=== PATIENT | female | born 1955 | race Caucasian/White ===

== ENCOUNTER → 2020-10-06 | Outpatient (CLI) | payer MEDICARE ==
[~2020-10-06] MED LIST: AMLO-187 PO; ATOR40TA59 PO; HYDR12.575 PO; IOHEXOL 180 MG/ML 10 ML VIAL. ONE; LISI-130 PO; MELO15TA23 PO; PRAM0.255 PO; ROPI0.5T4 PO; methylPREDNISolone ACETATE 40 MG/ML VIAL. ONE; methylPREDNISolone ACETATE 80 MG/ML VIAL. ONE
--- NOTE | 2020-10-06 16:21 | PDOC1 ---
INITIAL PAIN CONSULT DATE OF SERVICE: DOS: DATE: 10/06/20 TIME: 16:16 CHIEF COMPLAINT: Chief Complaint: Neck and left upper extremity pain HISTORY OF PRESENT ILLNESS: 64-year-old female presents with history of pain base the neck and left upper extremity for about 6 to 7 months now not result of any specific injury or accident that she is aware of but been getting worse over time patient reports pain base the neck rating to the left scapular region left upper extremity posterior deltoid lateral deltoid into the anterior bicep into the tricep into the hand occasionally with some numbness and tingling mostly in the shoulder itself. Patient reports it is worse with weightbearing repetitive motions left upper extremity reaching overhead with her left arm driving the car exacerbates it turning her head to the left side exacerbates it as well patient reports it wakes her from sleep at least 4-5 times a night does not affect her bowel bladder control or ability to walk but is significant with the neck and upper extremities repetitive motions and lifting items with the left arm. Patient has had physical therapy in August 2020 and also chiropractic treatment and exercises ongoing all of which have helped with but only very minimally patient is taking meloxicam which is not helping as well. Patient rates her disability rating 0- 10 10 being the worst is a 9 with family responsibilities recreation occupation 8 with sexual behavior self-care life support activities and social activity. Patient had MRI scan cervical spine showing cervical spondylitic changes with multilevel disc osteophyte complexes and facet arthropathy spinal stenosis and neuroforaminal narrowing most significant at C4-5 C5-6 and C6-7. PAST MEDICAL HISTORY: PMH: Hypertension, arthritis, cataracts, hyperlipidemia PREVIOUS SURGERIES: Past Surgical Hx: Right total knee replacement, right hip replacement CURRENT MEDICATIONS: Current Meds: Active Scripts Medications Dose Route/Sig Max Daily Dose Days Date Category Meloxicam 15 Mg Tablet 1 Tab PO DAILY 30 10/06/20 Reported Hydrochlorothiazide Capsule (Hydrochlorothiazide) 12.5 Mg Capsule 12.5 Mg PO DAILY 10/06/20 Reported Ropinirole Hcl 0.5 Mg Tablet 0.5 Mg PO DAILY 10/06/20 Reported Mirapex (Pramipexole Di-Hcl) 0.25 Mg Tablet 0.5 Mg PO DAILY 10/06/20 Reported Lisinopril 40 Mg Tablet 1 Tab PO DAILY 10/06/20 Reported Atorvastatin Calcium 40 Mg Tablet 1 Tab PO DAILY 10/06/20 Reported Amlodipine Besylate 10 Mg Tablet 10 Mg PO DAILY 10/06/20 Reported ALLERGIES; Allergies: Coded Allergies: No Known Drug Allergies (Unverified , 10/06/20) FAMILY HISTORY: Family Hx: Essential heart failure, breast cancer, colon cancer SOCIAL HISTORY: Social Hx: Patient is nondrug alcohol does not smoke or use any illegal illicit recreational drugs is lives with her spouse is locally in [facility] and is a local restaurant movie extra REVIEW OF SYSTEMS: ROS: Positive for those items mentioned in history of present illness, all systems are reviewed, otherwise negative ,and are complete full and well-documented on patient's chart. PHYSICAL EXAM: VS: Blood pressure is 143/77 pulse 59 respirations 16 temperature is 98.0 F, height is 5 feet 7 inches weight is 181 pounds PE: PHYSICAL EXAMINATION: GENERAL: The patient is awake, alert, oriented, appropriate, very pleasant in demeanor, patient [place] by her spouse HEENT: Shows normocephalic, atraumatic. Extraocular movements are intact and symmetrical. Oral cavity: Mucous membranes moist and pink. NECK: Shows anterior throat supple without palpable lymphadenopathy noted. Swallow reflex symmetrical. CHEST: Shows normal on inspection. Breath sounds are clear bilaterally, no rales or rhonchi. HEART: Shows S1, S2 clear. No murmurs auscultated. ABDOMEN: Soft, nontender, nondistended, obese. No palpable organomegaly is noted. BACK: Shows spine grossly in the midline. Normal-appearing cervical lordotic curvature. Cervical paraspinous muscles show symmetrical with inspection, on palpation some moderate tenderness diffusely bilaterally diffusely in the middle and lower decrease the paraspinous muscles worse on the left than the right with some moderate tenderness without specific trigger points on the left side. Patient shows good rotation motion cervical spine both laterally as well as full extension full forward flexion with left lateral rotation past 45 degrees so s ignificant tenderness in the base of the neck and some into the lateral aspect of the trapezius and into the lateral deltoid. Right side shows been nontender. There is slightly increased thoracic kyphosis, some minor flattening of the lumbar lordotic curvature. EXTREMITIES: Upper extremities show deep tendon reflexes 2+ in the biceps and triceps tendons. Motor exam is 5 on a scale of 5 with right cosmetic sales advisor strength, biceps and triceps flexion and 4/5 on the left. Peripheral pulses are 2+ radial. No peripheral edema is noted bilaterally. Upper extremities are warm and dry to touch, equal in color and appearance. SKIN: Shows warm and dry, good turgor. No edema. No sores, rashes or bruising throughout. IMPRESSION: Impression: 64-year-old female with 7-month history of pain base the neck and left upper extremity radicular fashion. MRI scan cervical spine as noted Arthritis Hypertension Plan: Options were discussed with the patient "insert medical management physical therapies interventional techniques. Patient like to pursue interventional techniques. We discussed a cervical epidural steroid injections description as well as anatomical models to describe the procedure. Risks were discussed including but not limited to: Bleeding, infection, possibility of epidural hematoma and subsequent neurological compromise, dural puncture, headaches, spinal cord and/or nerve damage, side effects of steroid medication, and poor results regarding pain control. Patient understands and wished to proceed. She will return to the clinic in approximate 2 weeks for follow-up, was counseled as return appointment to fill and side effects to be aware of. Procedure cervical epidural steroid injection at the C6-7 level, using local anesthetic under sterile prep and drape using C-arm fluoroscopic guidance under local anesthesia medications injected ;120 mg Depo-Medrol +5 mL normal saline and 2 mL contrast; condition at discharge is stable patient tolerated procedure well. and had no complications YONAS RAJAN MD Oct 06, 2020 16:21
== END | disposition home or self-care (01) ==
LOC: PNCL 13:45
PROVIDERS: ATTEND Anesthesiology
DX: M54.2 Cervicalgia (principal); M79.602 Pain in left arm; I10 Essential (primary) hypertension; M19.90 Unspecified osteoarthritis, unspecified site; E78.5 Hyperlipidemia, unspecified; Z79.899 Other long term (current) drug therapy; Z98.890 Other specified postprocedural states; Z82.49 Family history of ischemic heart disease and other diseases of the circulatory system; Z80.3 Family history of malignant neoplasm of breast
CPT/HCPCS: G0463; J1030; J1040; Q9965

== ENCOUNTER → 2020-10-20 | Outpatient (CLI) | payer MEDICARE ==
[~2020-10-20] MED LIST changes: -IOHEXOL 180 MG/ML 10 ML VIAL. ONE; -methylPREDNISolone ACETATE 40 MG/ML VIAL. ONE; -methylPREDNISolone ACETATE 80 MG/ML VIAL. ONE
--- NOTE | 2020-10-20 11:46 | PDOC ---
Progress Note - Pain Clinic Date of Service: DOS: DATE: 10/20/20 TIME: 11:43 Diagnosis: Dx: Cervical radiculopathy with cervical spinal stenosis and cervical degenerative disc disease History or Present Illness: HPI: 64-year-old female returns for follow-up status post cervical epidural steroid injection x1. Patient reports near 100% improvement in the neck and left upper extremity pain patient reports her main complaint is right lower extremity pain and low back pain at this time which is much more noticeable now that her neck and shoulders are doing much better patient reports her headaches are now gone she is very pleased with her progress report remains a 1 on scale 10 is least worse than average over the past week and the pain in the back and right leg is now much more noticeable patient reports is aching and sharp cramping constant and severe with standing walking sitting or changing positions patient reports can flareup while she is sleeping and wakes her from sleep 2 to 3 hours. Neck upper extremities and shoulders doing much better however patient is very pleased with her progress thus far. Patient reports no motor loss no bowel or bladder incontinence. Physical Exam: VS: Blood pressure is 140/82 pulse 62 respirations 20 temperature 98.6 F height is 5 feet 7 inches weight is 181 pounds PE: PHYSICAL EXAMINATION: GENERAL: The patient is awake, alert, oriented, appropriate, very pleasant in demeanor, patient accompanied by her HEENT: Shows normocephalic, atraumatic. Extraocular movements are intact and symmetrical. Oral cavity: Mucous membranes moist and pink. Dentition is int act. NECK: Shows anterior throat supple without palpable lymphadenopathy noted. Swallow reflex symmetrical. CHEST: Shows normal on inspection. Breath sounds are clear bilaterally, distant but no rales or rhonchi. HEART: Shows S1, S2 clear. No murmurs auscultated. ABDOMEN: Soft, nontender, nondistended, obese. No palpable organomegaly is noted. BACK: Shows spine grossly in the midline. Normal-appearing cervical lordotic curvature. Cervical paraspinous muscles show symmetrical with inspection, on palpation some mild tenderness more diffusely in the middle and inferior aspect of the cervical paraspinous musculature without specific trigger points. Patient shows good rotation of motion both laterally as well as full extension full forward flexion without significant pain reported. There is slightly increased thoracic kyphosis, some minor flattening of the lumbar lordotic curvature. Lumbar paraspinous muscles show symmetrical on inspection, on palpation shows some moderate tenderness diffusely throughout the upper, middle and lower distribution of the paraspinous muscles bilaterally and also into the lower thoracic paraspinous musculature, firm and tender, but without specific trigger points, without radiation of pain. The patient has good rotational mot ion of the lumbar spine, both laterally as well as extension and flexion without significant difficulty. No tenderness over the spinous processes, sacrum or sacroiliac regions. EXTREMITIES: Lower extremities show deep tendon reflexes 2+ in the patellar and tendo calcaneus tendons. Motor exam is 5 on a scale of 5 with right dorsiflexion, extension, quadriceps and hamstring flexion and 5/5 on the left. Peripheral pulses are 1+ posterior tibial. No peripheral edema is noted bilaterally. Lower extremities are warm and dry to touch, equal in color and appearance. Upper extremity strength and reflexes 2+ in the bicep tricep tendons motor exam strong with 5 out of 5 pastry mixer strength bicep and tricep flexion on the right and 4-5 on the left peripheral pulses are 2+ radial no peripheral edema is noted. Shoulder shrug is strong and intact without loss of strength on resistance bilaterally. SKIN: Shows warm and dry, good turgor. No edema. No sores, rashes or bruising throughout. Procedure: Procedure: Options were discussed with the patient. Patient's old chart reviews her current medication regimen updated current review of systems updated today as well. We will hold on further injections at this time as she is doing much better with the cervical radiculopathy in the left arm. Patient chief complaint of low back and right lower extremity pain is in a radicular fashion as well and we will order MRI scan to better assess any spinal etiology for this. Medication Injected: Med Injected: None Condition at Discharge: Condition at Discharge: Condition at discharge is stable. YONAS RAJAN MD Oct 20, 2020 11:46
== END | disposition home or self-care (01) ==
LOC: PNCL 11:13
PROVIDERS: ATTEND Anesthesiology
DX: M50.10 Cervical disc disorder with radiculopathy, unspecified cervical region (principal); M48.02 Spinal stenosis, cervical region; Z79.899 Other long term (current) drug therapy
CPT/HCPCS: 99212; G0463

== ENCOUNTER → 2020-10-23 | Outpatient (CLI) | payer MEDICARE ==
--- NOTE | 2020-10-23 14:56 | KCIC ---
MRI of the lumbar spine without contrast July 23, 2020 CLINICAL HISTORY: Low back pain which radiates down the right leg. TECHNIQUE: Unenhanced T1-weighted and T2-weighted sagittal and axial and inversion recovery sagittal images of the lumbar spine were obtained. FINDINGS: Very mild S-shaped curvature of the thoracolumbar spine is seen. Degenerative signal change s and varying loss of height are seen involving all the disks of the lumbar spine. Degenerative signa l changes are seen within the marrow surrounding these discs. The conus medullaris is normal morpholo gy, position, and signal characteristics. The L1-2 disc space there is a minimal generalized disc bulge. Superimposed on this disc bulge is a l eft paracentral focal disc protrusion. This measures 3 mm in AP diameter. Degenerative changes are se en involving the facet joints bilaterally. There is mild ligament flavum hypertrophy bilaterally. The se findings when combined result in mild left-sided central spinal canal stenosis. No neural foramina l stenosis is seen. At the L2-3 disc space there is a mild to moderate generalized disc bulge. This is eccentric to the l eft. Degenerative changes are seen involving the facet joints bilaterally. There is mild ligamentum f lavum hypertrophy bilaterally. There are small facet joint effusions bilaterally. There is prominence of posterior epidural fat. These findings when combined result in mild left greater than right centr al spinal canal stenosis. No neural foraminal stenosis is seen. At the L3-4 disc space there is a mild to moderate generalized disc bulge. This is eccentric to the r ight. Superimposed on this disc bulge is a right lateral focal disc herniation. This extrudes superio rly and laterally to the right. This measures 2.0 x 1.2 x 1.0 centimeters in craniocaudal, transverse and AP dimensions. Degenerative changes are seen involving the facet joints bilaterally. There are s mall facet joint effusions bilaterally. There is mild to moderate ligamentum flavum hypertrophy bilat erally. Prominence of posterior epidural fat is seen. These findings when combined result in mild to moderate right greater than left central spinal canal stenosis. Severe right neural foraminal stenosi s is seen. The disc herniation appears to impinge upon the right L3 nerve root within the lateral asp ect of the right neural foramen. The left neural foramen is patent. At the L4-5 disc space there is a moderate generalized disc bulge. Degenerative changes are seen invo lving the facet joints bilaterally. There is moderate ligamentum flavum hypertrophy bilaterally. Ther e are small facet joint effusions bilaterally. There is prominence of posterior epidural fat. These f indings when combined result in moderate to severe central spinal canal stenosis. Mild bilateral neur al foraminal stenosis is seen. At the L5-S1 disc space there is a mild generalized disc bulge. Degenerative changes are seen involvi ng the facet joints bilaterally. There are small facet joint effusions bilaterally. There is mild lig ament flavum hypertrophy bilaterally. These findings when combined do not result in significant centr al spinal canal or neural foraminal stenosis. IMPRESSION: The changes of degenerative disc disease are seen throughout the lumbar spine. These find ings result in mild left-sided central spinal canal stenosis at L1-2, mild left greater than right ce ntral spinal canal stenosis at L2 through mild to moderate right greater than left central spinal can al stenosis at L3-4 and moderate to severe central spinal canal stenosis at L4-5. Mild bilateral neur al foraminal stenosis is seen at L4-5. At the L3-4 disc space a right lateral focal disc herniation i s seen which extrudes superiorly and laterally to the right. This results in severe right neural fora candy stenosis and appears to impinge upon the right L3 nerve root. Electronically signed by: Jm Hoskins MD (10/23/2020 2:53 PM) [id number]
== END | disposition home or self-care (01) ==
LOC: KCIC MRI 10:49
PROVIDERS: ATTEND Anesthesiology
DX: M51.16 Intervertebral disc disorders with radiculopathy, lumbar region (principal); M48.061 Spinal stenosis, lumbar region without neurogenic claudication; Z79.899 Other long term (current) drug therapy
CPT/HCPCS: 72148

== ENCOUNTER → 2020-10-28 | Outpatient (CLI) | payer MEDICARE ==
[~2020-10-28] MED LIST changes: +IOHEXOL 180 MG/ML 10 ML VIAL. ONE; +methylPREDNISolone ACETATE 40 MG/ML VIAL. ONE; +methylPREDNISolone ACETATE 80 MG/ML VIAL. ONE
--- NOTE | 2020-10-28 08:27 | PDOC ---
Progress Note - Pain Clinic Date of Service: DOS: DATE: 10/28/20 TIME: 08:24 Diagnosis: Dx: Cervical radiculopathy with cervical spinal stenosis and cervical degenerative disc disease Lumbar radiculopathy with lumbar degenerative disease and lumbar herniated disc History or Present Illness: HPI: 64-year-old female returns follow-up status post cervical epidural steroid injection x1. Patient ports 100% improvement but her main complaint is low back and right lower extremity pain we had ordered an MRI scan which we discussed with her several days ago showing significant changes L3-4 disc with the disc bulge eccentric to the right with a focal lateral disc herniation at the 3 4 level with mild to moderate right greater than left central spinal canal stenosis. She reports pain low back right lower extremity posterior gluteus lateral thigh anterior thigh medial thigh medial lower leg as well is into the calf on the medial aspect at times patient reports is worse with walking standing changing positions better with sitting or laying down but is waking from sleep about every 3 hours patient reports he can reposition usually get back to sleep patient reports her neck and shoulders however doing much better she still has no pain in the neck or shoulders after injection there patient reports pain the low back right leg is sharp stabbing tight in the back shooting in the leg stabbing in the leg can be severe at times as well patient reports is a 10 on scale 10 at all times average worst least and 10 this morning. Patient reports no motor or sensory deficits no bowel or bladder incontinence. Physical Exam: VS: Blood pressure is 139/84 pulse 69 respirations 18 temp is 90.1 F height 5 feet 7 inches weight is 183 pounds PE: PHYSICAL EXAMINATION: GENERAL: The patient is awake, alert, oriented, appropriate, very pleasant in demeanor HEENT: Shows normocephalic, atraumatic. Extraocular movements are intact and symmetrical. Oral cavity: Mucous membranes moist and pink. Dentition is int act. NECK: Shows anterior throat supple without palpable lymphadenopathy noted. Swallow reflex symmetrical. CHEST: Shows normal on inspection. Breath sounds are clear bilaterally. HEART: Shows S1, S2 clear. No murmurs auscultated. ABDOMEN: Soft, nontender, nondistended. No palpable organomegaly is noted. BACK: Shows spine grossly in the midline. Normal-appearing cervical lordotic curvature. Cervical paraspinous muscles show symmetrical inspection on palpation some moderate tenderness only very minimal in the inferior aspect of the cervical paraspinous muscle bilaterally. Patient shows full rotation of the cervical spine both laterally as well as extension flexion without difficulty. There is slightly increased thoracic kyphosis, some minor flattening of the lumbar lordotic curvature. Lumbar paraspinous muscles show symmetrical on inspection, on palpation shows some moderate tenderness diffusely throughout the upper, middle and lower distribution of the paraspinous muscles without specific trigger points, without radiation of pain. The patient has good rotational motion of the lumbar spine, both laterally as well as extension and flexion without significant difficulty. No tenderness over the spinous processes, sacrum or sacroiliac regions. EXTREMITIES: Lower extremities show deep tendon reflexes 2+ in the patellar and tendo calcaneus tendons. Motor exam is 4 on a scale of 5 with right dorsiflexion, extension, quadriceps and hamstring flexion and 5/5 on the left. Peripheral pulses are 1 to posterior tibial. No peripheral edema is noted bilaterally. Lower extremities are warm and dry to touch, equal in color and appearance. SKIN: Shows warm and dry, good turgor. No edema. No sores, rashes or bruising throughout. Procedure: Procedure: Options discussed with patient. Patient chart reviews her current medication regimen updated current review of systems updated today as well. We will proceed with a lumbar epidural steroid injection today with fluoroscopic guidance. Risks were discussed including but not limited to: Bleeding, infection, possibility of epidural hematoma and subsequent neurological compromise, dural puncture, headaches, spinal cord and/or nerve damage, side effects of steroid medication, and poor results regarding pain control. Patient understands and wished to proceed. Patient will return to clinic in approximate 2 weeks for follow-up, was counseled as return appointment to fill and side effects to be aware of. Medication Injected: Med Injected: Procedure is lumbar epidural steroid injection under local anesthetic using sterile prep and drape at the L3-4 level using C-arm fluoroscopic guidance in both AP and lateral views medications injected is 120 mg Depo-Medrol +10mL preservative-free normal saline and 2 mL contrast- condition at discharge is stable patient tolerated procedure well had no complications. Condition at Discharge: Condition at Discharge: Condition at discharge stable, patient already procedure well and had no complications. YONAS RAJAN MD Oct 28, 2020 08:27
--- NOTE | 2020-10-28 08:28 | PDOC4 ---
Procedure Note: ICD 10 Code: ICD 10 Code: M54.16 M51.36 M51.26 M 48.07 Procedure Note: Patient was consented for lumbar epidural steroid injection with fluoroscopic guidance. Risks were discussed including but not limited to: Bleeding, infection, possibility of epidural hematoma and subsequent neurological compromise, dural puncture, headaches, spinal cord and/or nerve damage, side effects of steroid medication, and poor results regarding pain control. Patient understands and wished to proceed. Procedure is lumbar epidural steroid injection under local anesthetic using sterile prep and drape at the L3-4 level using C-arm fluoroscopic guidance in both AP and lateral views medications injected is 120 mg Depo-Medrol +10mL preservative-free normal saline and 2 mL contrast- condition at discharge is stable patient tolerated procedure well had no complications. YONAS RAJAN MD Oct 28, 2020 08:28
== END | disposition home or self-care (01) ==
LOC: PNCL 07:39
PROVIDERS: ATTEND Anesthesiology
DX: M51.16 Intervertebral disc disorders with radiculopathy, lumbar region (principal); M50.10 Cervical disc disorder with radiculopathy, unspecified cervical region; M48.02 Spinal stenosis, cervical region; Z79.899 Other long term (current) drug therapy
CPT/HCPCS: 62323; J1030; J1040; Q9965

== ENCOUNTER → 2020-11-11 | Outpatient (CLI) | payer MEDICARE ==
[~2020-11-11] MED LIST changes: -methylPREDNISolone ACETATE 40 MG/ML VIAL. ONE
--- NOTE | 2020-11-11 10:46 | PDOC ---
Progress Note - Pain Clinic Date of Service: DOS: DATE: 11/11/20 TIME: 10:43 Diagnosis: Dx: Lumbar radiculopathy lumbar degenerative disc disease lumbar spinal stenosis and lumbar Cervical radiculopathy with cervical degenerative disease and cervical spinal stenosis History or Present Illness: HPI: 64-year-old female returns for follow-up status post cervical epidural to injection x1 and lumbar epidural steroid injection x1. Patient ports a cervical injection still 100% improvement in the neck and upper extremities lumbar still some residual pain in the low back and the right lower extremity posterior gluteus posterior lateral thigh lateral anterior thigh and medial thigh medial lower leg patient reports is 100% improvement for the first week or so but the pain began to gradually return and is near its baseline at this level of the patient reports is 8 on scale 10 is worse over the past week 8 on average and 8 its least is an 8 today patient describes as cramping stabbing aching sharp on and off in intensity. Patient reports no loss of motor function no bowel or bladder incontinence. Patient reports is better with sitting or laying down does not generally awaken her from sleep at night. Patient taking meloxicam once daily which she feels does help but only by about 25%. We discussed this further and recommend that she try a extra strength Tylenol in addition to see if this may decrease the pain up to twice daily. Patient will try to Physical Exam: VS: Blood pressure is 144/71 pulse 83 respirations 18 temperature 90.5 F height 5 feet 7 inches weight is 179 pounds PE: PHYSICAL EXAMINATION: GENERAL: The patient is awake, alert, oriented, appropriate, very pleasant in demeanor HEENT: Shows normocephalic, atraumatic. Extraocular movements are intact and symmetrical. Oral cavity: Mucous membranes moist and pink. NECK: Shows anterior throat supple without palpable lymphadenopathy noted. Swallow reflex symmetrical. CHEST: Shows normal on inspection. Breath sounds are clear bilaterally, no rales or rhonchi. HEART: Shows S1, S2 clear. No murmurs auscultated. ABDOMEN: Soft, nontender, nondistended, obese. No palpable organomegaly is noted. BACK: Shows spine grossly in the midline. Normal-appearing cervical lordotic curvature. There is slightly increased thoracic kyphosis, some flattening of the lumbar lordotic curvature. Lumbar paraspinous muscles show symmetrical on inspection, on palpation shows some moderate tenderness diffusely throughout the upper, middle and lower distribution of the paraspinous muscles without specific trigger points, without radiation of pain. The patient has good rotational motion of the lumbar spine, both laterally as well as extension and flexion without significant difficulty. EXTREMITIES: Lower extremities show deep tendon reflexes 2+ in the patellar and tendo calcaneus tendons. Motor exam is 4 on a scale of 5 with right dorsiflexion, extension, quadriceps and hamstring flexion and 5/5 on the left. Peripheral pulses are 1 posterior tibial. No peripheral edema is noted bilaterally. Lower extremities are warm and dry to touch, equal in color and appearance. SKIN: Shows warm and dry, good turgor. No edema. No sores, rashes or bruising throughout. Procedure: Procedure: Options were discussed with the patient. Patient's old chart was reviewed as was her current medication regimen updated current review of systems updated today as well. We will proceed with a second lumbar epidural steroid injection today with fluoroscopic guidance. Risks were discussed including but not limited to: Bleeding, infection, possibility of epidural hematoma and subsequent neurological compromise, dural puncture, headaches, spinal cord and/or nerve damage, side effects of steroid medication, and poor results regarding pain control. Patient understands and wished to proceed. She will return to the clinic in approximate 2 weeks for follow-up, was counseled as to return appointment activity level and side effects to be aware of. Medication Injected: Med Injected: Procedure is lumbar epidural steroid injection under local anesthetic using sterile prep and drape at the L3-4 level using C-arm fluoroscopic guidance in both AP and lateral views medications injected is 120 mg Depo-Medrol +10mL preservative-free normal saline and 2 mL contrast- condition at discharge is stable patient tolerated procedure well had no complications. Condition at Discharge: Condition at Discharge: Condition at discharge is stable, patient tolerated procedure well and had no complications. YONAS RAJAN MD Nov 11, 2020 10:46
--- NOTE | 2020-11-11 10:49 | PDOC4 ---
Procedure Note: ICD 10 Code: ICD 10 Code: M 54.16 M 51.36 M 48.07 M 51.26 Procedure Note: Patient was consented for a lumbar epidural steroid injection with fluoroscopic guidance. Risks were discussed including but not limited to: Bleeding, infection, possibility of epidural hematoma and subsequent neurological comp romise, dural puncture, headaches, spinal cord and/or nerve damage, side effects of steroid medication, and poor results regarding pain control. Patient understands and wished to proceed. Procedure is lumbar epidural steroid injection under local anesthetic using sterile prep and drape at the L3 4 level using C-arm fluoroscopic guidance in both AP and lateral views medications injected is 120 mg Depo-Medrol +10mL preservative-free normal saline and 2 mL contrast- condition at discharge is stable patient tolerated procedure well had no complications. YONAS RAJAN MD Nov 11, 2020 10:49
== END | disposition home or self-care (01) ==
LOC: PNCL 10:04
PROVIDERS: ATTEND Anesthesiology
DX: M51.16 Intervertebral disc disorders with radiculopathy, lumbar region (principal); M50.10 Cervical disc disorder with radiculopathy, unspecified cervical region; Z79.899 Other long term (current) drug therapy
CPT/HCPCS: 62323; J1040; Q9965

== ENCOUNTER → 2021-04-10 | Outpatient (CLI) | payer MEDICARE ==
[~2021-04-10] MED LIST changes: -IOHEXOL 180 MG/ML 10 ML VIAL. ONE; -methylPREDNISolone ACETATE 80 MG/ML VIAL. ONE
--- NOTE | 2021-04-10 12:19 | RAD ---
Study: CT cervical spine without contrast INDICATION: Cervical spondylosis without myelopathy. COMPARISON: None. TECHNIQUE: Axial CT imaging of the cervical spine performed without intravenous contrast. Sagittal an d coronal reformats were obtained. One or more of the following individualized dose reduction techniques were utilized for this examinat ion: 1. Automated exposure control 2. Adjustment of the mA and/or kV according to patient size 3. Use of iterative reconstruction technique. FINDINGS: No acute fracture or focally aggressive osseous process. Chronic focus of the ligamentum nuchae ossif ication between C4 and C5. Straightening of cervical lordosis. Grade 1 anterolisthesis of C3 on C4, C7 on T1, T1 on T2 and T2 on T3. Mild retrolisthesis of C4 on C5 and C5 on C6. The most advanced discogenic arthrosis is at C4-C5 and C5-C6 with associated endplate sclerosis and cystic change. Less pronounced discogenic arthrosis at T1-T2 and to a slightly lesser extent at most other levels. Severe degenerative changes with bone -on-bone across the left C1-C2 lateral mass articulation. Adjacent chronic ossific fragments. Less pr onounced arthrosis at the right C1-C2 lateral masses. Mild degenerative changes at the craniocervical interface. No prevertebral effusion. Minimal calcific atherosclerosis. No discrete thyroid nodule. Unremarkable lung apices. C2-C3: Disc bulge with a right paracentral protruding component. Mild left more so than right facet a rthrosis. No evidence for significant central canal stenosis. No osseous encroachment on the neural f oramina. C3-C4: Minimal disc bulge. Uncovertebral joint hypertrophy. Moderate bilateral facet arthrosis. No ev idence for significant central canal stenosis. Osseous neural foraminal stenosis is mild on the right and left. C4-C5: Disc osteophyte complex and right more so than left uncovertebral joint hypertrophy. Minimal f acet arthrosis. Moderate or more central canal stenosis. Moderate osseous neural foraminal stenosis o n the right and minimal on the left. C5-C6: Disc osteophyte complex and uncovertebral joint hypertrophy. Minimal facet arthrosis. Moderate or more central canal stenosis. Mild bilateral osseous neural foraminal narrowing. C6-C7: Incompletely characterized disc bulge in part from beam attenuation. Uncovertebral joint hyper trophy on the left. Minimal facet arthrosis. Uncertain degree of central canal stenosis. Mild osseous neural foraminal stenosis on the left. C7-T1: Mild right and moderate left facet arthrosis. Mild left eccentric endplate osteophytic ridging . Moderate osseous neural foraminal narrowing on the left and minimal on the right. Uncertain canal s tenosis. T1-T2: Endplate osteophytic ridging. Moderate/severe right and moderate left facet arthrosis. Mild/mo derate osseous neural foraminal narrowing on the left and mild on the right. T2-T3: Mild left more so than right facet arthrosis. Mild left and minimal right osseous neural allan inal narrowing. IMPRESSION: 1. No acute/subacute fracture or aggressive osseous process. 2. Advanced discogenic arthrosis at several levels on a background of straightened cervical lordosis and multilevel listhesis. 3. Incompletely evaluated central canal without intrathecal contrast. Particularly limited evaluatio n below C5-C6 secondary to beam attenuation. Estimated at least moderate central canal stenosis at C4 -C5 and C5-C6. 4. Multilevel osseous neural foraminal stenosis mostly mild and moderate in severity and greatest on the right at C4-C5. Soft tissue causes of stenosis are not able to be evaluated. 5. Note is made of particular severe degenerative changes across the left C1-C2 lateral mass articul ation with joint space collapse and bony overgrowth. Electronically signed by: SANDIE BELLE MD (04/10/2021 12:16 PM) [facility] [email or web address]
== END ==
LOC: CT 10:55
DX: M47.813 Spondylosis without myelopathy or radiculopathy, cervicothoracic region (principal); M48.03 Spinal stenosis, cervicothoracic region; M25.78 Osteophyte, vertebrae
CPT/HCPCS: 72125